=== PATIENT | female | born 1985 | race American Indian/Alaskan Native ===

== ENCOUNTER 2017-09-04 14:00 | Emergency (ER) | payer SELFPAY ==
[2017-09-04] MEDS ORDERED: MOTRIN PO ONE (17:33)
--- NOTE | 2017-09-04 19:39 | Emergency Department Report ---
ED ENT HPI - General Chief complaint: Dental/Oral Stated complaint: JAW PAIN SWOLLEN Time Seen by Provider: 09/04/17 19:28 Source: patient Mode of arrival: Ambulatory Limitations: No Limitations - History of Present Illness Initial comments: 32-year-old -[place] female comes in complaining of right jaw pain and swelling onset this a.m. Patient reports dental pain to the right side of mouth 4 month. Patient is taking no pain medication prior to arrival but was given ibuprofen in triage. 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 Patient pushes recently moved here and has no dentist at this time. Patient has multiple allergies to foods fish, peanuts, shellfish. MD complaint: tooth pain -: month(s) (tooth pain), This morning (right sided facial swelling) Location: tooth # (1) Severity scale (0 -10): 10 Quality: sharp, constant Consistency: constant Improves with: none Worsens with: none Associated Symptoms: gum swelling, toothache - Related Data Previous Rx's Medication Instructions Recorded Last Taken Type Ibuprofen [Motrin 800 MG tab] 800 mg PO Q8HR PRN 10 Days #30 09/04/17 Unknown Rx tablet Penicillin Vk [Veetids TAB] 250 mg PO QID #40 tablet 09/04/17 Unknown Rx traMADol [Ultram 50 MG tab] 50 mg PO Q6HR PRN #12 tablet 09/04/17 Unknown Rx Allergies Allergy/AdvReac Type Severity Reaction Status Date / Time Fish Containing Products Allergy Swelling Verified 09/04/17 14:33 peanut Allergy Swelling Verified 09/04/17 14:33 shellfish derived Allergy Swelling Verified 09/04/17 14:33 ED Dental HPI - General Chief complaint: Dental/Oral Stated complaint: JAW PAIN SWOLLEN Time Seen by Provider: 09/04/17 19:28 Source: patient Mode of arrival: Ambulatory Limitations: No Limitations - Related Data Previous Rx's Medication Instructions Recorded Last Taken Type Ibuprofen [Motrin 800 MG tab] 800 mg PO Q8HR PRN 10 Days #30 09/04/17 Unknown Rx tablet Penicillin Vk [Veetids TAB] 250 mg PO QID #40 tablet 09/04/17 Unknown Rx traMADol [Ultram 50 MG tab] 50 mg PO Q6HR PRN #12 tablet 09/04/17 Unknown Rx Allergies Allergy/AdvReac Type Severity Reaction Status Date / Time Fish Containing Products Allergy Swelling Verified 09/04/17 14:33 peanut Allergy Swelling Verified 09/04/17 14:33 shellfish derived Allergy Swelling Verified 09/04/17 14:33 ED Review of Systems ROS: Stated complaint: JAW PAIN SWOLLEN Other details as noted in HPI Constitutional: denies: chills, fever Eyes: denies: eye pain, eye discharge, vision change ENT: dental pain ED Past Medical Hx - Past Medical History Previous Medical History?: No - Surgical History Past Surgical History?: Yes Additional Surgical History: facial surgery, arm surgery - Social History Smoking Status: Never Smoker Substance Use Type: None - Medications Home Medications: Home Medications Medication Instructions Recorded Confirmed Last Taken Type Ibuprofen [Motrin 800 MG tab] 800 mg PO Q8HR PRN 10 Days #30 09/04/17 Unknown Rx tablet Penicillin Vk [Veetids TAB] 250 mg PO QID #40 tablet 09/04/17 Unknown Rx traMADol [Ultram 50 MG tab] 50 mg PO Q6HR PRN #12 tablet 09/04/17 Unknown Rx ED Physical Exam - General Limitations: No Limitations General appearance: alert, in no apparent distress - ENT ENT exam: Present: mucous membranes moist - Expanded ENT Exam Expanded Teeth exam: Present: dental tenderness #, gingival enlargement, other (right sided facial swelling, with tenderness to palpate) - Neck Neck exam: Present: normal inspection, full ROM. Absent: lymphadenopathy - Respiratory Respiratory exam: Present: normal lung sounds bilaterally. Absent: respiratory distress - Cardiovascular Cardiovascular Exam: Present: regular rate, normal rhythm. Absent: systolic murmur, diastolic murmur, rubs, gallop ED Course Vital Signs 09/04/17 14:28 Temperature 98.7 F Pulse Rate 96 H Respiratory 20 Rate Blood Pressure 128/90 O2 Sat by Pulse 98 Oximetry Critical care attestation.: If time is entered above; I have spent that time in minutes in the direct care of this critically ill patient, excluding procedure time. ED Disposition Clinical Impression: Dental abscess Disposition: - TO HOME OR SELFCARE Is pt being admited?: No Does the pt Need Aspirin: No Condition: Stable Instructions: Dental Abscess (ED) Additional Instructions: Please complete antibiotics as prescribed. Please take pain medication as needed. Very importantly to follow up with the dentist for further treatment and evaluation. Prescriptions: Ibuprofen [Motrin 800 MG tab] 800 mg PO Q8HR PRN 10 Days #30 tablet PRN Reason: Pain , Severe (7-10) Penicillin Vk [Veetids TAB] 250 mg PO QID #40 tablet traMADol [Ultram 50 MG tab] 50 mg PO Q6HR PRN #12 tablet PRN Reason: Pain Referrals: PRIMARY CARE, [Primary Care Provider] - 3-5 Days [facility] [Outside] - 3-5 Days [facility] [Outside] - 3-5 Days [facility] [Provider Group] - 3-5 Days Forms: Work/School Release Form(ED)
[2017-09-04] MEDS ORDERED: NORCO 7.5/325 PO ONE (19:44)
[2017-09-04 20:14] VITALS: BP 128/74
== END 2017-09-04 20:12 | disposition home or self-care (01) ==
LOC: ED 14:00
DX: K04.7 Periapical abscess without sinus (principal); Z91.010 Allergy to peanuts; Z91.013 Allergy to seafood
CPT/HCPCS: 99282